=== PATIENT | female | born 1995 | race Caucasian/White ===

== ENCOUNTER 2017-02-26 11:59 | Observation (INO) | payer OTHER ==
[~2017-02-26] VITALS: Ht 162.6 cm; Wt 51.7 kg
[2017-02-26 14:21] VITALS: BP_SYST 108
== END 2017-02-26 13:45 | disposition home or self-care (01) ==
LOC: SPU 11:59
PROVIDERS: ADMIT Obstetrics & Gynecology; ATTEND Obstetrics & Gynecology
DX: Z34.93 Encounter for supervision of normal pregnancy, unspecified, third trimester (principal); Z3A.38 38 weeks gestation of pregnancy
CPT/HCPCS: 59025; 76819; 81002; G0378

== ENCOUNTER 2017-02-27 15:01 | Inpatient (IN) | payer OTHER ==
[~2017-02-27] VITALS: Ht 162.6 cm; Wt 51.7 kg
[2017-02-27] MEDS ORDERED: OXYTOCIN/NORMAL SALINE 1,000 ML IV SCH (23:58)
[2017-02-27] MEDS ORDERED: LR 1,000 ML IV ONE (23:58)
[2017-02-28 01:17] LABS: BASOPHILS % (AUTO) 0.5 % (0.0-2.0); EOSINOPHILS % (AUTO) 0.6 % (0.0-4.0); HEMATOCRIT 27.1 % (36-48); HEMOGLOBIN 9.4 g/dL (12.0-16.0); LYMPHOCYTES # (AUTO) 2.1 K/uL (1.0-5.5); LYMPHOCYTES % (AUTO) 27.9 % (20.5-51.5); MEAN CORPUSCULAR HEMOGLOBIN 33 pg (27-31); MEAN CORPUSCULAR HGB CONC 35 % (32-36); MEAN CORPUSCULAR VOLUME 94 fL (79.0-98.0); MONOCYTES # (AUTO) 0.6 K/uL (0.0-1.0); MONOCYTES % (AUTO) 8.5 % (1.7-9.3); NEUTROPHILS # (AUTO) 4.7 K/uL (1.8-7.7); NEUTROPHILS % (AUTO) 62.5 % (40.0-70.0); PLATELET COUNT (AUTO) 204 K/uL (130-430); RED BLOOD CELL COUNT(AUTO) 2.89 MIL/uL (4.2-6.2); RED CELL DISTRIBUTION WIDTH 12.3 % (9.0-15.0); WHITE BLOOD COUNT (AUTO) 7.4 K/uL (4.8-10.8)
[2017-02-28 01:30] LABS: ALBUMIN 2.9 g/dL (3.4-4.8); CREATININE 0.44 mg/dL (0.55-1.30); POTASSIUM 3.3 mmol/L (3.5-5.1); TOTAL BILIRUBIN 0.3 mg/dL (0.0-1.0); TOTAL PROTEIN, SERUM 6.4 g/dL (6.4-8.3)
[2017-02-28 03:28] VITALS: BP_SYST 136
[2017-02-28] MEDS: LR 1,000 ML IV SCH ×4 (08:39→20:56)
[2017-02-28] MEDS: LABETALOL HCL 100 MG TABLET PO SCH ×2 (09:04→23:55)
[2017-02-28] MEDS ORDERED: FENT2mCg/mL-ROPIVA0.2%/NS EPID 150 ML EP ONE (20:24)
[2017-02-28] MEDS ORDERED: FENT2mCg/mL-ROPIVA0.2%/NS EPID 150 ML EP SCH (20:24)
[2017-02-28] MEDS ORDERED: fentaNYL CITRATE/PF 100 MCG/2 ML AMP IVP ONE (20:55)
[2017-02-28] MEDS ORDERED: fentaNYL CITRATE/PF 100 MCG/2 ML AMP ONE (20:55)
[2017-02-28] MEDS ORDERED: LR 1,000 ML IV ONE (21:23)
[2017-02-28] MEDS ORDERED: ePHEDrine sulfate 50 MG/ML VIAL IVP PRN (21:30)
[2017-02-28] MEDS ORDERED: ONDANSETRON HCL 4 MG/2 ML VIAL IVP PRN ×2 (21:30)
[2017-02-28] MEDS ORDERED: KETOROLAC TROMETHAMINE 30 MG VIAL IM PRN (21:30)
[2017-02-28] MEDS ORDERED: fentaNYL CITRATE/PF 100 MCG/2 ML AMP IVP PRN (21:30)
[2017-02-28] MEDS ORDERED: DIPHENHYDRAMINE INJ 50 MG/ML VIAL IVP PRN (21:30)
[2017-02-28] MEDS ORDERED: NALBUPHINE HCL 10 MG/ML AMP IVP PRN ×2 (21:30)
[2017-02-28] MEDS ORDERED: NALOXONE HCL 0.4 MG/ML AMP (NARCAN) IVP PRN (21:30)
[2017-03-01] MEDS ORDERED: OXYTOCIN/NORMAL SALINE 1,000 ML IV ONE (09:09)
[2017-03-01] MEDS ORDERED: OXYTOCIN/NORMAL SALINE 1,000 ML IV SCH (09:09)
[2017-03-01] MEDS ORDERED: MEASLES,MUMPS&RUBELLA VACC/PF 12500 UNIT/0.5 ML VIAL SUBQ PRN (09:15)
[2017-03-01] MEDS ORDERED: LANOLIN 7 GM OINT. TP PRN (09:15)
[2017-03-01] MEDS ORDERED: GLYCERIN/WITCH HAZEL (TUCKS PADS) TP PRN (09:15)
[2017-03-01] MEDS ORDERED: METHYLERGONOVINE MALEATE 0.2 MG TABLET PO PRN (09:15)
[2017-03-01] MEDS ORDERED: HYDROCORTISONE 0.5%, 28.35 GM TOPICAL CREAM TP PRN (09:15)
[2017-03-01] MEDS ORDERED: RHO(D) IMMUNE GLOBULIN/MALTOSE 1500 UNITS/1.3 ML (WINHRO) IM PRN (09:15)
[2017-03-01] MEDS ORDERED: ACETAMINOPHEN 325 MG TABLET PO PRN (09:15)
[2017-03-01] MEDS ORDERED: SENNOSIDES/DOCUSATE SODIUM 1 TAB TABLET(SENOKOT-S) PO PRN (09:15)
[2017-03-01] MEDS ORDERED: OXYCODONE/ACETAMINOPHEN 5-325 TABLET PO PRN ×2 (09:15)
[2017-03-01] MEDS ORDERED: ANUSOL 1 EA SUPP.RECT (PREPARATION H) RC PRN (09:15)
[2017-03-01] MEDS ORDERED: DERMOPLAST SPRAY TP PRN (09:15)
[2017-03-01] MEDS: IBUPROFEN 600 MG TABLET PO SCH ×3 (11:20→23:15)
[2017-03-01] MEDS: DOCUSATE SODIUM 100 MG CAPSULE PO PRN (13:35)
[2017-03-01] MEDS ORDERED: TEMAZEPAM 15 MG CAPSULE PO PRN (21:00)
[2017-03-02] MEDS: IBUPROFEN 600 MG TABLET PO SCH ×3 (05:48→18:24)
[2017-03-02 06:28] LABS: HEMOGLOBIN 8.3 g/dL (12.0-16.0)
[2017-03-02] MEDS: DOCUSATE SODIUM 100 MG CAPSULE PO PRN (12:21)
[2017-03-02] MEDS ORDERED: MINERAL OIL 30 ML UDC PO ONE (15:00)
[2017-03-03] MEDS: IBUPROFEN 600 MG TABLET PO SCH ×2 (00:01→05:48)
== END 2017-03-03 11:15 | disposition home or self-care (01) | DRG 774 ==
LOC: SPU 02-28 00:06
PROVIDERS: ADMIT Obstetrics & Gynecology; ATTEND Obstetrics & Gynecology
PROC: 10907ZC Drainage of Amniotic Fluid, Therapeutic from Products of Conception, Via Natural or Artificial Opening (ICD-10-PCS; 2017-02-28)
PROC: 10D07Z6 Extraction of Products of Conception, Vacuum, Via Natural or Artificial Opening (ICD-10-PCS; principal; 2017-03-01)
PROC: 3E0S3CZ (ICD-10-PCS; 2017-03-01)
PROC: 00HU33Z Insertion of Infusion Device into Spinal Canal, Percutaneous Approach (ICD-10-PCS; 2017-03-01)
PROC: 3E033VJ Introduction of Other Hormone into Peripheral Vein, Percutaneous Approach (ICD-10-PCS; 2017-03-01)
PROC: 0KQM0ZZ Repair Perineum Muscle, Open Approach (ICD-10-PCS; 2017-03-01)
DX: O64.0XX0 Obstructed labor due to incomplete rotation of fetal head, not applicable or unspecified (principal); O10.92 Unspecified pre-existing hypertension complicating childbirth; O70.1 Second degree perineal laceration during delivery; O75.81 Maternal exhaustion complicating labor and delivery; O76 Abnormality in fetal heart rate and rhythm complicating labor and delivery; Z3A.37 37 weeks gestation of pregnancy; Z37.0 Single live birth
CPT/HCPCS: 36415; 80053; 81002-TC; 85018-TC; 85025; 86886; 86900; 86901; 94760; A4618; J2300; J2590; J3010; J7120